=== PATIENT | female | born 1990 | race Caucasian/White ===

== ENCOUNTER 2017-01-05 18:04 | Emergency (ER) | payer SELFPAY ==
[~2017-01-05] VITALS: Ht 165.1 cm; Wt 54.0 kg
[2017-01-05 18:16] VITALS: BP 143/81
== END 2017-01-05 20:58 | disposition left against medical advice (07) ==
LOC: ER 18:04
DX: O20.9 Hemorrhage in early pregnancy, unspecified (principal); Z3A.01 Less than 8 weeks gestation of pregnancy; Z53.21 Procedure and treatment not carried out due to patient leaving prior to being seen by health care provider